=== PATIENT | female | born 1965 | race American Indian/Alaskan Native ===

== ENCOUNTER 2017-09-24 13:30 | Emergency (ER) | payer OTHER ==
--- NOTE | 2017-09-24 13:50 | ED PDOC ---
Arrival/HPI - General Time Seen by Provider: 09/24/17 13:39 Historian: Patient - History of Present Illness Narrative History of Present Illness (Text): 09/24/17 13:47 51 y/o female, no significant pmh, nkda, post menopausal, not on any antiplatete or anticoagulant, c/o rt. knee/thigh and hand thumb pain s/p fall started this morning. Pt. stated that she tripped, twisted the rt. knee and hit the rt. thigh and rt. hand 1st digit thumb caught on the stair handle, didn' t tumbled down the stair, no fever or chills no hematuria, no head or neck injury, able to recall the whole event with no LOC, no back pain, no abdominal pain, no nausea or vomiting, no other medical or psychological complaints. Past Medical History - Provider Review Nursing Documentation Reviewed: Yes - Infectious Disease Hx of Infectious Diseases: None - Cardiac Hx Hypertension: Yes - Pulmonary Hx Asthma: Yes - Endocrine/Metabolic Hx Diabetes Mellitus Type 1: Yes - Psychiatric Hx Substance Use: Yes (daily) Family/Social History - Physician Review Nursing Documentation Reviewed: Yes Family/Social History: Unknown Family HX Smoking Status: Heavy Smoker > 10 Cigarettes Daily Hx Alcohol Use: No Hx Substance Use: Yes (daily) Substance used: Marijuana Allergies/Home Meds Allergies/Adverse Reactions: Allergies No Known Allergies Allergy (Verified 09/24/17 13:40) Home Medications: Home Meds Medication Instructions Recorded Confirmed Enalapril Maleate [Vasotec] 5 mg PO DAILY 09/24/17 09/24/17 Insulin Regular [HumuLIN R] 1 units IV ACHS 09/24/17 09/24/17 Review of Systems - Review of Systems Constitutional: absent: Fatigue, Fevers Eyes: absent: Vision Changes ENT: absent: Hearing Changes Respiratory: absent: SOB, Cough Cardiovascular: absent: Chest Pain Gastrointestinal: absent: Abdominal Pain, Nausea, Vomiting Musculoskeletal: Arthralgias, Myalgias. absent: Back Pain, Neck Pain, Joint Swelling Skin: absent: Rash, Pruritis Neurological: absent: Headache, Dizziness Psychiatric: absent: Anxiety, Depression, Suicidal Ideation Physical Exam Vital Signs Temp Pulse Resp BP Pulse Ox 09/24/17 15:47 86 H 139/81 96 09/24/17 13:47 98.0 F 90 18 134/75 100 Appearance: Positive for: Well-Appearing, Non-Toxic, Comfortable Pain Distress: Moderate - Systems Exam Head: Present: Atraumatic, Normocephalic. No: Tenderness, Contusion, Swelling, Ecchymosis Pupils: Present: PERRL Extroacular Muscles: Present: EOMI Conjunctiva: Present: Normal Mouth: Present: Moist Mucous Membranes Nose (External): Present: Atraumatic. No: Abrasion, Contusion Nose (Internal): Present: Normal Inspection, No Active Bleeding Neck: Present: Normal Range of Motion, Trachea Midline. No: MIDLINE TENDERNESS , Paraspinal Tenderness, Lymphadenopathy Respiratory/Chest: Present: Clear to Auscultation, Good Air Exchange. No: Respiratory Distress, Accessory Muscle Use Cardiovascular: Present: Regular Rate and Rhythm, Normal S1, S2. No: Murmurs Abdomen: Present: Normal Bowel Sounds. No: Tenderness, Distention, Peritoneal Signs, Rebound, Guarding Back: Present: Normal Inspection. No: Midline Tenderness, Paraspinal Tenderness Upper Extremity: Present: Normal Inspection, Other (Rt. hand: +ttp on the 1st PIPJ of the thumb with no laceration or abrasion, FROM without limitation, sensation intact, motor 5/5, +radial pulse, capillary refill< 2 seconds, neurovascular intact. ). No: Cyanosis, Edema Lower Extremity: Present: Normal Inspection, Other (RLE: mild +ttp and mild swelling on the rt. anterior knee joint and distal femur region, no ecchymosis, FROM without limitation, sensation intact, motor 5/5, no hip tenderness or swelling, +DPPT pulses. ). No: Edema Neurological: Present: GCS=15, Speech Normal, Memory Normal Skin: Present: Warm, Dry, Normal Color. No: Rashes Psychiatric: Present: Alert, Oriented x 3, Normal Insight, Normal Concentration Medical Decision Making ED Course and Treatment: 09/24/17 13:51 -Xrays -Motrin -Observe and reassess 09/24/17 16:12 -Rt. knee/femur/hand xrays show no acute fracture or dislocation. -Pain improved. -Robert wrap applied with neurovascular intact, crutches. -Discharge home with naproxen, robert wrap, crutches, ice compression, weight bearing as tolerated, follow up with your own pmd and orthopedic within 2 days, return to the ER for any new or worsening signs or symptoms. - RAD Interpretation Radiology Orders: 09/24/17 13:44 Femur Right [FEMUR MIN 2 VIEWS RT] [RAD] Stat HAND RIGHT 3 VIEWS [RAD] Stat KNEE W PATELLA RIGHT 3 VIEW [RAD] Stat Rt. hand radiograph: PROCEDURE: Right Hand Radiographs. HISTORY: rt. hand 1st digit thumb pain s/p fall COMPARISON: None. FINDINGS: BONES: Normal. No fracture. JOINTS: Normal. No osteoarthritic changes. SOFT TISSUES: Normal. OTHER FINDINGS: None. IMPRESSION: Normal right hand radiographs. PROCEDURE: Right Knee Radiographs. HISTORY: rt. knee pain s/p fall COMPARISON: None. FINDINGS: BONES: Normal. No fracture. JOINTS: Normal. No osteoarthritis. There is an osteophyte arising from the superior surface of the patella. JOINT EFFUSION: None. OTHER FINDINGS: None. IMPRESSION: No acute findings Rt. Femur: PROCEDURE: Right Femur Radiographs. HISTORY: rt. femur pain s/p fall COMPARISON: None. TECHNIQUE: AP and Lateral Radiographs of the right femur. FINDINGS: FEMUR: Normal. No fracture. SOFT TISSUES: Normal. OTHER FINDINGS: None. IMPRESSION: Unremarkable radiographs of the right femur. Shaper Set Up Operator: Radiologist - Medication Orders Current Medication Orders: Discontinued Medications Ibuprofen (Motrin Tab) 600 mg PO STAT STA Stop: 09/24/17 13:47 Last Admin: 09/24/17 13:53 Dose: 600 mg MAR Pain/Vitals Document 09/24/17 13:53 KKL (Rec: 09/24/17 13:54 [id number]) Pain Reassessment Is This A Pain ReAssessment? Yes Sleep Is patient sleeping during reassessment? No Presence of Pain Presence of Pain Yes Pain Scale Used Pain Scale Used Numeric Location Left, Right or Bilateral Right Pain Location Body Site Knee Description Constant Intensity 10 Scale Used Numeric - PA / NURSE LEADER / Resident Statement / has reviewed & agrees with the documentation as recorded. Disposition/Present on Arrival - Present on Arrival Any Indicators Present on Arrival: No History of DVT/PE: No History of Uncontrolled Diabetes: No Urinary Catheter: No History of Decub. Ulcer: No History Surgical Site Infection Following: None - Disposition Have Diagnosis and Disposition been Completed?: Yes Diagnosis: Knee injury, Arthralgia Disposition: HOME/ ROUTINE Disposition Time: 16:14 Patient Plan: Discharge Condition: IMPROVED Additional Instructions: -Discharge home with naproxen, robert wrap, crutches, ice compression, weight bearing as tolerated, follow up with your own pmd and orthopedic within 2 days, return to the ER for any new or worsening signs or symptoms. Prescriptions: Naproxen 500 mg PO BID PRN #[id number] tab PRN Reason: Other Referrals: Parag Olivo DO [Staff Provider] - Follow up with primary Forms: WORK NOTE
[2017-09-24 13:52] VITALS: PULSE 90; TEMP 98
--- NOTE | 2017-09-24 15:37 | RAD ---
PROCEDURE: Right Hand Radiographs. HISTORY: rt. hand 1st digit thumb pain s/p fall COMPARISON: None. FINDINGS: BONES: Normal. No fracture. JOINTS: Normal. No osteoarthritic changes. SOFT TISSUES: Normal. OTHER FINDINGS: None. IMPRESSION: Normal right hand radiographs.
--- NOTE | 2017-09-24 15:38 | RAD ---
PROCEDURE: Right Femur Radiographs. HISTORY: rt. femur pain s/p fall COMPARISON: None. TECHNIQUE: AP and Lateral Radiographs of the right femur. FINDINGS: FEMUR: Normal. No fracture. SOFT TISSUES: Normal. OTHER FINDINGS: None. IMPRESSION: Unremarkable radiographs of the right femur.
--- NOTE | 2017-09-24 15:39 | RAD ---
PROCEDURE: Right Knee Radiographs. HISTORY: rt. knee pain s/p fall COMPARISON: None. FINDINGS: BONES: Normal. No fracture. JOINTS: Normal. No osteoarthritis. There is an osteophyte arising from the superior surface of the patella. JOINT EFFUSION: None. OTHER FINDINGS: None. IMPRESSION: No acute findings
[2017-09-24 15:47] VITALS: BP 139/81; RESP 86; O2SAT 96
== END 2017-09-24 16:33 | disposition home or self-care (01) ==
LOC: ED 13:30
DX: S89.91XA Unspecified injury of right lower leg, initial encounter (principal); W01.0XXA Fall on same level from slipping, tripping and stumbling without subsequent striking against object, initial encounter; M25.50 Pain in unspecified joint; I10 Essential (primary) hypertension; F17.210 Nicotine dependence, cigarettes, uncomplicated